=== PATIENT | female | born 1990 | race Caucasian/White ===

== ENCOUNTER 2020-09-24 16:58 | Emergency (ER) | payer OTHER ==
[~2020-09-24] VITALS: Ht 162.6 cm; Wt 76.8 kg
[2020-09-24 18:17] VITALS: BP 124/79; PULSE 81; TEMP 98.8
== END 2020-09-24 18:16 | disposition home or self-care (01) ==
LOC: COL.ER 16:58
DX: S61.012A Laceration without foreign body of left thumb without damage to nail, initial encounter (principal); W26.0XXA Contact with knife, initial encounter

== ENCOUNTER 2020-10-04 15:06 | Emergency (ER) | payer OTHER ==
[~2020-10-04] VITALS: Ht 162.6 cm; Wt 78.2 kg
[2020-10-04 15:11] VITALS: TEMP 98.5
[2020-10-04 16:31] VITALS: BP 126/95; PULSE 76
== END 2020-10-04 16:41 | disposition home or self-care (01) ==
LOC: COL.ER 15:06
DX: S81.811A Laceration without foreign body, right lower leg, initial encounter (principal); X78.1XXA Intentional self-harm by knife, initial encounter

== ENCOUNTER → 2020-10-18 | Outpatient (CLI) | payer SELFPAY ==
[2020-10-18 17:18] VITALS: BP 124/78; PULSE 82; TEMP 98.9
== END ==
LOC: COL.ER 16:54
DX: Z48.02 Encounter for removal of sutures (principal)